=== PATIENT | male | born 1965 | race Caucasian/White ===

== ENCOUNTER 2021-12-01 21:27 | Emergency (ER) | payer OTHER, SELFPAY ==
[2021-12-01 22:30] VITALS: BP 142/92; PULSE 97; RESP 18; TEMP 36.6; O2SAT 100
--- NOTE | 2021-12-02 01:12 | PC.NURSE ---
called cell phone to inform pt and family that ed exam room now avail. states they just left and will get seen elsewhere. encouraged to return if symptoms change or worsen
== END 2021-12-02 01:12 | disposition left against medical advice (07) ==
DX: S29.9XXA Unspecified injury of thorax, initial encounter (principal)
CPT/HCPCS: 99199